=== PATIENT | male | born 1970 | race Caucasian/White ===

== ENCOUNTER 2017-01-07 07:30 | Day surgery (SDC) | payer OTHER, SELFPAY ==
[2017-01-06 12:54] VITALS: BMI 200.1
[2017-01-07 08:00] LABS: Mean Platelet Volume 6.8 fL (7.4-10.4); Red Blood Cell (RBC) Count 4.41 mill/uL (4.70-6.10); White Blood Cell (WBC) Count 8.3 thou/uL (4.8-10.8)
[2017-01-07] MEDS ORDERED: Midazolam HCl 2 mg/2 ml Vial ONE (08:01)
[2017-01-07] MEDS ORDERED: Fentanyl 100 MCG/2 ML VIAL ONE ×3 (08:02→09:45)
[2017-01-07 08:05] LABS: Bilirubin Negative (Negative); Blood, Urine Negative (Negative); Glucose, Urine (Dipstick) Negative (Negative); Ketone, Urine Negative (Negative); Nitrite Negative (Negative); Protein, Urine (Dipstick) Negative (Neg-Trace); Urobilinogen 0.2 mg/dL (0.2-1.0)
[2017-01-07 08:07] LABS: Bacteria/HPF None Seen HPF (None Seen); Hyaline Casts/LPF 0-3 HYALINE CAST LPF (0-3 Hyaline); RBC/HPF 0-3 HPF (0-3); Squamous Epithelial None Seen HPF (0-3); WBC/HPF 0-3 HPF (0-3)
[2017-01-07] MEDS ORDERED: Lidocaine 2% PF 10 ML AMP (For Epidural Use) ONE (08:08)
[2017-01-07] MEDS ORDERED: Propofol 200 MG/20 ML VIAL ONE (08:08)
[2017-01-07] MEDS ORDERED: Lidocaine 1% w/Epinephrine 1:200K 30 ML VIAL ONE (09:08)
[2017-01-07] MEDS ORDERED: Ketorolac Tromethamine 30 MG/ML VIAL ONE (09:54)
[2017-01-07] MEDS ORDERED: HYDROcodone/Acetaminophen 5/325 mg Tablet ONE (11:04)
--- NOTE | 2017-01-07 15:46 | OP ---
DATE OF PROCEDURE: 01/07/2017 PREOPERATIVE DIAGNOSIS: Right distal radius intra-articular fracture. POSTOPERATIVE DIAGNOSIS: Right distal radius intra-articular fractures, 3 or more fragments. PROCEDURE PERFORMED: Open reduction internal fixation right distal radius. STAFF: Thom Curry M.D. [employer] PROJECT MANAGER: Sandip Miles PA-C. ANESTHESIA: Dr. Chandler. The patient received a LMA with 10 mL of lidocaine 1% with epinephrine. ESTIMATED BLOOD LOSS: 30 mL TOURNIQUET TIME: 44 minutes. ANTIBIOTICS: Ancef 2 grams. IMPLANTS: A [employer] variable angle distal radius plate with five 2.4 locking screws and three 2.7 n onlocking screws. COMPLICATIONS: None. 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 He fell and seen in my clinic yesterday, injured himself on the . 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 I felt that he would improve his outcome is fun ctional, improved alignment of the distal radius. I discussed the risks and benefits of surgery to include pain, scar, bleeding, infection, damage to vital structures, decreased range of motion, stre ngth, nonunion, malunion, arthritis, loss of life or limb. The patient understood these risks and b enefits and elected to proceed. DESCRIPTION OF PROCEDURE: Time out was performed designating the patient's right upper extremity as the operative site based on sight, consents and markings. The tourniquet was brought up for a tota l of 44 minutes. The incision was made down on top to the patient's flexure carpi radialis. The kelsi camilo's incision was pulled medially, came down to the fascia, the palmaris, the flexor pollicis dameon russell as well as the pronator quadratus were dissected to expose the distal radius. There was some he aling, but we were able to break up the fracture line healing and elevate the dorsal cortex. The pa tient had an exposed distal radius intraarticular split with dorsal comminution with two or more fra gments. We reduced it under fluoroscopic guidance, we placed the plate into position and positioned the plate based on fluoroscopic guidance. We then placed a 2.7 screw to lock it into place. We th en pinned the wrist into place and placed 5 sequential 2.4 screws distally, drilling and placing the m, looked under fluoroscopic guidance just to ensure they are out of the joint line. I was happy ov erall with alignment. We had improved the patient's tilt about neutral, we had buffer up the intra- articular split. The patient had spinal 3-hole screws placed. The wrist was then washed. After th is, we placed two more 2.7s proximally, took final pictures, washed and closed the pronator quadratu s. Skin and subcutaneous with nylon, placed on a volar splint. The patient received 10 mL of lidoc sundar in his incision line for splint was placed. The patient will follow up me in about 10 days, re main in the splint. Keep his arm elevated, given pain medications.
--- NOTE | 2017-01-08 09:46 | RAD ---
RIGHT WRIST INTRAOPERATIVE FLUOROSCOPY 3 VIEWS: HISTORY: Wrist fracture. FINDINGS: Intraoperative fluoroscopy was provided for internal fixation as performed by Dr. Curry. Three sp ot fluoroscopic images show volar compression plate and multiple screws to transfix the distal radiu s in anatomic alignment. Fluoro time=24 seconds. POS: [facility]
== END 2017-01-07 11:59 | disposition home or self-care (01) ==
LOC: SDC 07:30
PROVIDERS: ATTEND Orthopaedic Surgery
PROC: 0PSH04Z Reposition Right Radius with Internal Fixation Device, Open Approach (ICD-10-PCS; principal; 2017-01-07)
DX: S52.571A Other intraarticular fracture of lower end of right radius, initial encounter for closed fracture (principal); G43.909 Migraine, unspecified, not intractable, without status migrainosus; D64.9 Anemia, unspecified; E16.2 Hypoglycemia, unspecified; F17.210 Nicotine dependence, cigarettes, uncomplicated; F15.90 Other stimulant use, unspecified, uncomplicated; F12.90 Cannabis use, unspecified, uncomplicated; F41.9 Anxiety disorder, unspecified; F31.9 Bipolar disorder, unspecified; R03.0 Elevated blood-pressure reading, without diagnosis of hypertension; Z79.899 Other long term (current) drug therapy; Z72.89 Other problems related to lifestyle
CPT/HCPCS: 76000; 81001; 85027; 96374; C1713; J1885; J2001; J2250; J2270; J2704; J3010